=== PATIENT | male | born 1950 | race Caucasian/White ===

== ENCOUNTER → 2017-03-03 | Outpatient (CLI) | payer MEDICARE, OTHER ==
--- NOTE | 2017-03-03 16:06 | MR ---
EXAMINATION TYPE: MR lumbar spine wo con DATE OF EXAM: 03/03/2017 COMPARISON: NONE HISTORY: Low back pain x10 years TECHNIQUE: Multiplanar, multisequence images of the lumbar spine were acquired. FINDINGS: Vertebral body alignment and vertebral body heights are maintained. Small Schmorl's node of the superior endplate of the L3 vertebral body is seen with the anterior superior endplate vertebral body height maintained. Other smaller Schmorl's nodes are seen throughout. Small probable bone islan d is seen at L3, T1 hypointense and T2 hypointense. Type II Modic degenerative endplate changes are n oted throughout. Multilevel disc desiccation is seen. The conus medullaris is unremarkable terminatin g at L1. L1-L2: There is a broad-based disc bulge present without focality that is left eccentric creating mil d neural foraminal narrowing without spinal canal stenosis. L2-L3: There is a broad-based disc bulge, facet arthropathy, and ligamentum flavum buckling creating mild bilateral neural foraminal narrowing and transversely narrowing the spinal canal mildly. L3-L4: There is significant ligamentum flavum buckling, a broad-based disc bulge, and facet arthropat hy mildly narrowing the neural foramen but creating moderate spinal canal stenosis. L4-L5: Broad-based disc bulge, facet arthropathy and ligamentum flavum buckling are seen. Additionall y superimposed upon this there is a right foraminal disc herniation extending into the neural foramen abutting the L4 nerve root creating moderate right neural foraminal narrowing. There is mild to mode rate spinal canal stenosis and mild to moderate left neural foraminal narrowing present. L5-S1: There is a broad-based disc bulge creating mild neural foraminal narrowing in combination with moderate facet arthropathy. No spinal canal stenosis. IMPRESSION: 1. Right foraminal disc herniation superimposed upon a broad-based disc bulge at L4-L5 create a disc herniation abuts the exiting L4 nerve root and creates moderate right neural foraminal narrowing. 2. Multilevel degenerative disc disease, moderate in degree. This creates mild to moderate spinal can al stenosis at L4-L5, moderate spinal canal stenosis at L3-L4, and mild spinal canal stenosis at L2-L 3. Multilevel neural foraminal narrowing as described above.
== END | disposition home or self-care (01) ==
LOC: RADMRIMAIN 14:59
PROVIDERS: ATTEND Internal Medicine
DX: M48.061 Spinal stenosis, lumbar region without neurogenic claudication (principal); M99.73 Connective tissue and disc stenosis of intervertebral foramina of lumbar region; M51.26 Other intervertebral disc displacement, lumbar region; M51.36 Other intervertebral disc degeneration, lumbar region
CPT/HCPCS: 72148

== ENCOUNTER → 2017-05-13 | Outpatient (CLI) | payer MEDICARE, OTHER ==
--- NOTE | 2017-05-13 13:40 | P.HPIM ---
History of Present Illness H&P Date: 05/13/17 Chief Complaint: low back and lower extremity pain This is a 66-year-old patient referred by [facility] for chronic pain in low back with radiation to both legs, L >> R with numbness in left foot but not in his leg. Patient is considering left hip replacement and is referred by Dr. Leung for LESIs to ensure that his pain is not coming from his lumbar spine. Patient has been taking only OTC medications for pain with some relief. Patient denies adverse drug effects from medications. Patient also denies new -onset weakness, bowel/bladder incontinence, or any other signs or symptoms of cauda equina syndrome. There are no signs of acute intoxication, and no indications of medication diversion or overuse. Patient notes that pain worsens significantly with standing and walking, and improves with sitting, rest, and medication. Patient has used several types of medications for pain, including NSAIDS, OPIOIDS, TRAMADOL. Patient HAS NOT had surgery. Patient HAS NOT had injections previously. Patient HAS had physical therapy recently without relief. In addition to above, 13-point review of systems is also negative for chest pain , shortness of breath, changes in vision, changes in hearing, new onset weakness , abdominal pain, diarrhea, extreme fatigue, malaise, fever, skin changes, homicidal or suicidal ideation, or bowel or bladder incontinence. Vital Signs: Reviewed in EMR Gen: WDWN, AAOx3, NAD HEENT: NCAT, EOMI, hearing grossly normal Pulm: resp unlabored Abd: soft, NT, ND Neck: supple, trachea midline ROM in flexion lumbar spine: reduced ROM in extension lumbar spine: reduced Lumbar paravertebral tenderness: + Facet loading: neg SI joint tenderness: neg Clayton's test: neg Straight leg raise: +LLE at 25 degrees Medications and Allergies Home Medications Medication Instructions Recorded Confirmed Type Allopurinol [Zyloprim] 100 mg PO DAILY 05/13/17 05/13/17 History Indomethacin [Indocin] 25 mg PO PRN 05/13/17 History [place]-3 Fatty Acids/Fish Oil [Fish 1,000 mg PO DAILY 05/13/17 05/13/17 History Oil 1,000 mg Softgel] Allergies Allergy/AdvReac Type Severity Reaction Status Date / Time No Known Allergies Allergy Verified 05/13/17 13:24 Results Comments: MRI lumbar spine without contrast demonstrates broad-based disc bulges at the L1 -L2, L2-L3, L3-L4, L4-L5, and L5-S1 levels. This is worse the L4-L5 level where there is also associated facet arthropathy and ligamentum flavum buckling seen. There is a right foraminal disc herniation extending into the neural foramen and abutting the L4 nerve root creating moderate right neural foraminal narrowing. There is also mild to moderate spinal canal stenosis at this level. At the L3-L4 level there is significant ligamentum flavum buckling and facet arthropathy mildly narrowing the neural foramina and also creating moderate spinal canal stenosis. Assessment and Plan (1) Lumbar radiculopathy Current Visit: Yes Status: Chronic Code(s): M54.16 - RADICULOPATHY, LUMBAR REGION SNOMED Code(s): 381713414 (2) Lumbar facet arthropathy Current Visit: Yes Status: Chronic Code(s): M46.96 - UNSPECIFIED INFLAMMATORY SPONDYLOPATHY, LUMBAR REGION SNOMED Code(s): 911728580 (3) Lumbar disc herniation Current Visit: Yes Status: Chronic Code(s): M51.26 - OTHER INTERVERTEBRAL DISC DISPLACEMENT, LUMBAR REGION SNOMED Code(s): 113191295 Plan: Plan: 1. Explanation: Opioid and psychological risk scores were reviewed. Diagnoses , prognoses, and multiple treatment options including but not limited to physical therapy, interventional therapies, adjuvant medical therapies, narcotic medication therapies, and surgery were discussed with the patient and all questions were answered to the patient's satisfaction. 2. Opioid agreement: no opioids prescribed today 3. Counseling: The patient was counseled extensively on SMOKING CESSATION, BODY MASS INDEX, EXERCISE. Specifically, the patient was instructed regarding the importance of smoking cessation, weight control, and exercise in the context of both chronic pain and overall health. 4. Procedures: LESI series L4-L5 if possible 5. Consultations: none 6. Investigations: none 7. Medications: none prescribed 8. Disposition: f/u for procedure as scheduled PQRS measures: 1-Patient's medications are documented in the chart. 2-Tobacco use is negative, counseling given 3-Patient has not had a pneumococcal vaccine. 4-Advanced care planning discussed, patient unable to give. 5-Opioid contract NOT signed with the patient. 6-Pain positive, follow-up visit or procedure scheduled 7-Patient's blood pressure measured and documented, and patient will follow up with the primary care due to hypertension. 8-Patient's weight was measured, and body mass index ABOVE the normal limits, and counseling was done. Patient instructed to follow up with PCP. 9-Patient WAS NOT identified as an unhealthy alcohol user.
[2017-05-13 13:42] VITALS: BP 160/67; PULSE 91; RESP 18
== END | disposition home or self-care (01) ==
LOC: PNWHC3 12:55
PROVIDERS: ATTEND Anesthesiology
DX: M51.16 Intervertebral disc disorders with radiculopathy, lumbar region (principal); M46.96 Unspecified inflammatory spondylopathy, lumbar region; Z79.899 Other long term (current) drug therapy
CPT/HCPCS: 99201

== ENCOUNTER 2017-05-15 05:58 | Day surgery (SDC) | payer MEDICARE, OTHER ==
[2017-05-14 09:01] VITALS: BMI 28.8
[2017-05-15 06:33] VITALS: RESP 16; TEMP 97.6
[2017-05-15] MEDS ORDERED: LACTATED RINGERS 1,000 ML IV ONE (06:35)
[2017-05-15] MEDS ORDERED: LIDOCAINE 1% 20 ML VIAL (10MG/ML) FOR IV START INTRADERMA ONE (06:35)
[2017-05-15] MEDS ORDERED: LACTATED RINGERS 1,000 ML IV SCH (07:00)
--- NOTE | 2017-05-15 07:18 | P.PCN ---
Date of Procedure: 05/15/17 Surgeon: Jorge Ferrell Pathology: none sent Condition: stable Disposition: PACU Description of Procedure: PREOPERATIVE DIAGNOSIS: 1-Lumbar disc herniation POSTOPERATIVE DIAGNOSIS: same PROCEDURE 1. Lumbar epidural steroid injection under fluoroscopic guidance at the L4-L5 level. 2. Lumbar epidurogram. ANESTHESIA: Local with 1% lidocaine; IV sedation with Versed/fentanyl. EBL: Minimal PROCEDURE INDICATION: The patient with low back pain and radiculitis (L >> R) symptoms unresponsive to conservative treatment. Fluoroscopy was used to optimize visualization of the needle placement and to maximize safety. No use of blood thinners. LESI #1 today. PROCEDURE DESCRIPTION / TECHNIQUE: The patient was seen and identified in the preoperative area. Risks, benefits, complications, and alternatives were discussed with the patient, including but not limited to bleeding, infection, nerve damage, allergic reactions to medications, and incomplete pain relief. The patient agreed to proceed with the procedure and signed the consent after all questions were answered. IV was started, and vital signs were stable. Patient was taken to the OR and time out was completed to confirm patient position, procedure, laterality of pain, and allergies. The patient was placed in the prone position on procedure table and a pillow was placed under the abdomen to reduce lumbar lordosis. The lumbosacral area was prepped and draped in the usual sterile fashion. Critical pause was taken. Vital signs were closely monitored during the procedure. Conscious sedation was used during the procedure to decrease patients anxiety. Using anterior-posterior fluoroscopy, the L4-L5 interlaminar space was identified and the skin over this site was marked and then infiltrated with 1% lidocaine subcutaneously in a left paramedian fashion. Subsequently, a 20-gauge 3.5-inch Tuohy epidural needle was inserted and advanced toward the epidural space using the Loss of resistance technique and guided by AP and lateral fluoroscopy. The correct needle position in the epidural space was verified with the injection of 2 mL of the water soluble contrast dye Omnipaque 300 contrast and observing an excellent epidurogram with the epidural spread of the dye, after negative aspiration for blood and CSF and in the absence of paresthesias. Again after negative aspiration, a 6 ml mixture containing 80 mg DepoMedrol and 2 ml of preservative free Normal Saline, and 2 ml of preservative free lidocaine 1% solution was injected and a washout of epidurogram was seen. Needle was withdrawn intact, skin was cleansed, and bandages were applied. COMPLICATIONS: None COMMENTS: DISPOSITION / PLANS: The patient was placed in a supine position and transferred to the recovery area in a stable condition for observation. There was no evidence of lower extremity motor or sensory deficit after the procedure. Patient was discharged from the recovery room after meeting discharge criteria. Home discharge instructions were given to the patient by the staff. The patient was reexamined prior to discharge and there were no issues. The patient will schedule a repeat LESI (#2) in 3-4 weeks.
[2017-05-15] MEDS ORDERED: IV FLUID CONTINUATION 1,000 ML IV ONE (07:23)
[2017-05-15 07:38] VITALS: BP 144/92; PULSE 64
--- NOTE | 2017-05-15 08:55 | FL ---
EXAMINATION TYPE: FL guided pain mgmt statistic DATE OF EXAM: 05/15/2017 CLINICAL HISTORY: Low back pain TECHNIQUE: Fluoroscopy. COMPARISON: None. FINDINGS: Fluoroscopic guidance was provided during procedure performed by Dr. Ferrell. A total of 7 seconds of fluoroscopic time was utilized during the procedure and one spot intraoperative image is a cquired. Single image acquired shows localization of needle at superior L5 epidural level from a post erior approach. IMPRESSION: As Above.
== END 2017-05-15 07:53 | disposition home or self-care (01) ==
LOC: ORPAIN 05:58
PROVIDERS: ATTEND Anesthesiology
DX: G89.29 Other chronic pain (principal); M51.16 Intervertebral disc disorders with radiculopathy, lumbar region; Z79.899 Other long term (current) drug therapy
CPT/HCPCS: 62323; J2250; J1030; J3010; Q9966

== ENCOUNTER → 2017-06-06 | Outpatient (CLI) | payer MEDICARE, OTHER ==
[2017-06-06 14:46] LABS: Partial Thromboplastin Time 24.2 sec (22.0-30.0); Prothrombin Time 9.9 sec (9.0-12.0)
[2017-06-06 14:50] LABS: HGB 14.3 gm/dL (13.0-17.5); MCH 28.1 pg (25.0-35.0); MCV 82.8 fL (80.0-100.0); Platelet Count 223 k/uL (150-450); RBC 5.07 m/uL (4.30-5.90); RDW 13.1 % (11.5-15.5)
[2017-06-06 14:52] LABS: ALT 36 U/L (21-72); AST 26 U/L (17-59); Albumin 4.7 g/dL (3.5-5.0); Alkaline Phosphatase 77 U/L (38-126); Anion Gap 19 mmol/L; Blood Urea Nitrogen 19 mg/dL (9-20); Carbon Dioxide 25 mmol/L (22-30); Chloride 105 mmol/L (98-107); Glucose 112 mg/dL (74-99); Potassium 4.7 mmol/L (3.5-5.1); Sodium 149 mmol/L (137-145); Total Bilirubin 1.1 mg/dL (0.2-1.3); Total Protein 8.2 g/dL (6.3-8.2)
[2017-06-06 14:53] LABS: Appearance,Urine Clear (Clear); Bilirubin,Urine Negative (Negative); Blood,Urine Trace (Negative); Color,Urine Yellow; Glucose,Urine (UA) Negative (Negative); Hyaline Casts,Urine 1 /lpf (0-2); Ketones,Urine Negative (Negative); Leukocyte Esterase,Urine Small (Negative); Mucus,Urine Rare /hpf; Nitrite,Urine Negative (Negative); Protein,Urine Negative (Negative); RBC,Urine 1 /hpf (0-5); Specific Gravity,Urine 1.019 (1.001-1.035); Squamous Epithelial Cell,Urine 1 /hpf (0-4); Urobilinogen,Urine <2.0 mg/dL (<2.0); WBC,Urine 5 /hpf (0-5)
== END | disposition home or self-care (01) ==
LOC: LABPAT 14:12 → EDSTATUS 16:28
PROVIDERS: ATTEND Orthopaedic Surgery
DX: Z01.812 Encounter for preprocedural laboratory examination (principal); Z01.818 Encounter for other preprocedural examination; Z79.01 Long term (current) use of anticoagulants
CPT/HCPCS: 36415; 80053; 81001; 85027; 85610; 85730; 87070; 93005

== ENCOUNTER 2017-06-12 05:54 | Day surgery (SDC) | payer MEDICARE, OTHER ==
[2017-06-10 10:15] VITALS: BMI 29.7
[2017-06-12 06:54] VITALS: RESP 16; TEMP 97.9
[2017-06-12] MEDS ORDERED: LACTATED RINGERS 1,000 ML IV ONE ×2 (06:55)
--- NOTE | 2017-06-12 07:28 | P.PCN ---
Date of Procedure: 06/12/17 Surgeon: Michael Osborne Description of Procedure: PREOPERATIVE DIAGNOSIS: 1-Lumbar disc herniation 2-Lumbar radiculopathy POSTOPERATIVE DIAGNOSIS: same PROCEDURE 1. Lumbar epidural steroid injection under fluoroscopic guidance at the L4-L5 level. 2. Lumbar epidurogram. ANESTHESIA: Local with 1% lidocaine; IV sedation with Versed/fentanyl. EBL: Minimal PROCEDURE INDICATION: The patient with low back pain and radiculitis (L >> R) symptoms unresponsive to conservative treatment. Fluoroscopy was used to optimize visualization of the needle placement and to maximize safety. No use of blood thinners. LESI #1 today. PROCEDURE DESCRIPTION / TECHNIQUE: The patient was seen and identified in the preoperative area. Risks, benefits, complications, and alternatives were discussed with the patient, including but not limited to bleeding, infection, nerve damage, allergic reactions to medications, and incomplete pain relief. The patient agreed to proceed with the procedure and signed the consent after all questions were answered. IV was started, and vital signs were stable. Patient was taken to the OR and time out was completed to confirm patient position, procedure, laterality of pain, and allergies. The patient was placed in the prone position on procedure table and a pillow was placed under the abdomen to reduce lumbar lordosis. The lumbosacral area was prepped and draped in the usual sterile fashion. Critical pause was taken. Vital signs were closely monitored during the procedure. Conscious sedation was used during the procedure to decrease patients anxiety. Using anterior-posterior fluoroscopy, the L4-L5 interlaminar space was identified and the skin over this site was marked and then infiltrated with 1% lidocaine subcutaneously in a left paramedian fashion. Subsequently, a 20-gauge 3.5-inch Tuohy epidural needle was inserted and advanced toward the epidural space using the Loss of resistance technique and guided by AP and lateral fluoroscopy. The correct needle position in the epidural space was verified with the injection of 2 mL of the water soluble contrast dye Omnipaque 300 contrast and observing an excellent epidurogram with the epidural spread of the dye, after negative aspiration for blood and CSF and in the absence of paresthesias. Again after negative aspiration, a 6 ml mixture containing 40 mg DepoMedrol and 2 ml of preservative free Normal Saline, and 2 ml of preservative free lidocaine 1% solution was injected and a washout of epidurogram was seen. Needle was withdrawn intact, skin was cleansed, and bandages were applied. COMPLICATIONS: None COMMENTS: DISPOSITION / PLANS: The patient was placed in a supine position and transferred to the recovery area in a stable condition for observation. There was no evidence of lower extremity motor or sensory deficit after the procedure. Patient was discharged from the recovery room after meeting discharge criteria. Home discharge instructions were given to the patient by the staff. The patient was reexamined prior to discharge and there were no issues. The patient is going to have left hip replacement in a few weeks.
[2017-06-12] MEDS ORDERED: LACTATED RINGERS 1,000 ML IV SCH (07:30)
[2017-06-12] MEDS ORDERED: IV FLUID CONTINUATION 1,000 ML IV ONE (07:32)
[2017-06-12 07:50] VITALS: BP 123/79; PULSE 76
--- NOTE | 2017-06-12 07:51 | FL ---
EXAMINATION TYPE: FL guided pain mgmt statistic DATE OF EXAM: 06/12/2017 COMPARISON: NONE HISTORY: Neck pain TECHNIQUE: Fluoroscopy. FINDINGS/IMPRESSION: Fluoroscopic guidance was provided during procedure performed by Dr. Osborne. A total of 7 seconds of fluoroscopic time was utilized during the procedure and 2 spot images was acq uired during a lumbar epidural.
== END 2017-06-12 08:03 | disposition home or self-care (01) ==
LOC: ORPAIN 05:54
PROVIDERS: ATTEND Anesthesiology
DX: M51.16 Intervertebral disc disorders with radiculopathy, lumbar region (principal)
CPT/HCPCS: 62323; J2250; J1030; J3010; Q9966; 99152

== ENCOUNTER → 2017-06-17 | Outpatient (CLI) | payer MEDICARE, OTHER | END | disposition home or self-care (01) | LOC: LABPAT 11:06 | PROVIDERS: ATTEND Orthopaedic Surgery | DX: Z01.812 Encounter for preprocedural laboratory examination (principal) | CPT/HCPCS: 36415; 86850; 86900; 86901 ==

== ENCOUNTER 2017-06-24 06:50 | Inpatient (IN) | payer MEDICARE, OTHER ==
[2017-06-18 10:07] VITALS: BMI 29.7
[~2017-06-24 06:50] MED LIST: ACETAMINOPHEN TAB 500 MG TAB PO ONE; MIDAZOLAM 2 MG/2 ML VIAL IV PRN; ONDANSETRON ODT 4 MG TAB PO ONE; ROPIVACAINE 246.25 MG, EPINEPHrine 0.5 MG, KETOROLAC 30 MG, cloNIDine HCL/PF 80 MCG, WA... MISCELLANE ONE; TRANEXAMIC ACID 1,000 MG in SODIUM CHLORIDE 0.9% 50 ML IVPB ONE; ceFAZolin IN SWFI 2 GM/20 ML SYRINGE IVP ONE; fentaNYL (PF) 50 MCG/ML 2 ML AMP IV PRN
[2017-06-24] MEDS: MELOXICAM 7.5 MG TAB PO ONE ×2 (07:49→13:49)
[2017-06-24] MEDS: LACTATED RINGERS 1,000 ML IV SCH ×2 (08:17→09:26)
[2017-06-24] MEDS: DEXAMETHASONE SOD PHOSPHATE 10 MG/ML 1 ML VIAL IV ONE ×2 (08:17→13:50)
[2017-06-24] MEDS ORDERED: ONDANSETRON 4 MG/2 ML VIAL IVP ONE (08:18)
[2017-06-24] MEDS ORDERED: MORPHINE SULFATE 4 MG/ML SYRINGE IVP PRN ×3 (09:01)
[2017-06-24] MEDS ORDERED: MAGNESIUM HYDROXIDE 2,400 MG/10 ML CUP PO PRN (09:01)
[2017-06-24] MEDS ORDERED: ONDANSETRON 4 MG/2 ML VIAL IVP PRN (09:01)
[2017-06-24] MEDS ORDERED: DIAZEPAM 5 MG TAB PO PRN ×2 (09:01)
[2017-06-24] MEDS ORDERED: NALOXONE 0.4 MG/ML 1 ML VIAL IV PRN (09:01)
[2017-06-24] MEDS ORDERED: HYDROcodone/APAP 5-325MG 1 EACH TAB PO PRN (09:01)
[2017-06-24] MEDS ORDERED: TRANEXAMIC ACID 1,000 MG/10 ML VIAL ONE (09:27)
[2017-06-24] MEDS ORDERED: fentaNYL (PF) 50 MCG/ML 2 ML AMP ONE (09:27)
[2017-06-24] MEDS ORDERED: HEPARIN SODIUM,PORCINE 10,000 UNIT/ML 1 ML VIAL ONE (09:27)
[2017-06-24] MEDS ORDERED: PHENYLEPHRINE-0.9% NACL SYG 1 MG/10 ML SYRINGE ONE (09:27)
[2017-06-24] MEDS ORDERED: SODIUM CHLORIDE 0.9% IRRIG 1,000 ML BTL IRRIGATION ONE (09:27)
[2017-06-24] MEDS ORDERED: MIDAZOLAM 2 MG/2 ML VIAL ONE (09:27)
[2017-06-24] MEDS ORDERED: SODIUM CHLORIDE 0.9% 100 ML BAG ONE (09:27)
[2017-06-24] MEDS ORDERED: PROPOFOL 10 MG/ML 20 ML VIAL IV ONE (09:27)
[2017-06-24] MEDS ORDERED: ceFAZolin 3,000 MG in SODIUM CHLORIDE 0.9% IRRIGATIO 3,000 ML IRRIGATION ONE (09:54)
[2017-06-24] MEDS ORDERED: LACTATED RINGERS 1,000 ML IV ONE (10:46)
--- NOTE | 2017-06-24 10:48 | P.OP ---
Date of Procedure: 06/24/17 Preoperative Diagnosis: Severe osteoarthritis left hip Postoperative Diagnosis: Severe osteoarthritis left hip Procedure(s) Performed: Left total hip arthroplasty with a direct anterior approach Implants: Diaz and nephew Polarstem size 4 standard Diaz [employer] Nephew R3, 3 hole acetabular shell, 54 mm Diaz [employer] Nephew reflection 6.5 mm cancellus screw, 20 mm 2 Diaz [employer] Nephew R3, XLPE 20 acetabular liner Diaz & Nephew Oxinium femoral head 36 m, +0 All components were press-fit. The articulation is Oxinium on polyethylene. Anesthesia: spinal Surgeon: Gustavo Mcmillan Monitor Worker #1: Denice Mata Estimated Blood Loss (ml): 150 (61 mL returned with Cell Saver) Pathology: other (Femoral head) Condition: stable Disposition: PACU Indications for Procedure: After failure of conservative treatment we discussed the surgical and nonsurgical treatment options at length. Patient wishes to proceed with a total hip arthroplasty with a direct anterior approach. Complications specific to this procedure were discussed at length, including but not limited to infection, leg length discrepancy, dislocation, and nerve injury. Patient is aware of all these complications and informed consent was obtained Operative Findings: The operative findings are consistent with severe osteoarthritis of the left hip Description of Procedure: Patient was seen and evaluated in the preoperative area, consent was reviewed, and the surgical site was marked with a skin marker. Patient was then brought to the operating room and given prophylactic antibiotics intravenously. 1 g of Tranexamic acid was also given. A spinal anesthetic was administered by the anesthesia department. The patient was then placed on the [place] table with the bony prominences well-padded. The hip area was then prepped and draped in usual sterile fashion. A universal timeout was then performed, which confirmed the patient's name, surgical site, ALLERGIES, and procedure being performed. Next the incision site was located at 1 cm distal and 1 cm lateral to the anterior superior iliac spine. The skin and subcutaneous tissues were sharply incised. Incision was carefully dissected down to the fascia overlying the tensor fascia demetris muscle. This fascia was then incised in line with the incision. Next, using blunt finger dissection, the tensor fascia demetris muscle was dissected off its investing fascia. The muscle was then carefully retracted laterally with a cobra retractor over the lateral neck of the femur. Next, the circumflex vessels were identified and cauterized using the AquaMantis device. The anterior hip capsule was then exposed. The capsule was then opened and an inverted T fashion. Cobra retractors were then placed intracapsularly. The proximal femur was then visualized. The femoral neck was then osteotomized appropriate level above the lesser trochanter. Small amount of traction was placed with the [place] table. A small wedge of bone was then removed from the remaining femoral head. Next, using a corkscrew femoral head was easily removed from the acetabulum. On gross visual inspection, the femoral head had complete loss of articular cartilage in multiple periarticular osteophytes. Attention was then turned to the acetabulum. the acetabulum was exposed and any remaining labrum was excised. Sequential reaming of the acetabulum was performed using fluoroscopic guidance. When the appropriate size was reached, a trial was then placed. The position and fit of the trial was checked with fluoroscopy. The trial was then removed. Then, using fluoroscopic guidance, the final implant was impacted at 20 of anteversion and 40 of abduction, and fully seated in the acetabulum. 2 screws were then placed in the acetabulum. Again fluoroscopy was used to check position of the screws. Next, the liner was then impacted, with a 20 elevated liner located in the anterior superior quadrant. Component locking was confirmed. Attention was then directed to the femur. With the aid of the [place] table, the femur was externally rotated to approximately 130, extended, and abducted under the opposite leg. A side hook was then placed under the proximal femur, and the side hook elevator was used to elevate the proximal femur. Retractors were then placed. A capsular release was performed, as well as a release of the conjoined tendon, which afforded excellent visualization of the proximal femur. Next, a box osteotome was used to lateralize the proximal femur. A web merchandiser was then used to locate the femoral canal. Sequential broaching was then performed with appropriate size which afforded excellent fixation in the proximal femur. A trial was then placed with appropriate head and neck, and the hip was gently reduced with the aid of the [place] table. Fluoroscopy was then used to check position of the components, as well as to ensure equal leg lengths. The hip was then gently dislocated and the trials were then removed. Final implants were then impacted and the hip was again reduced. Final fluoroscopic x-rays confirmed that the components were in anatomic position, as well as equal leg lengths. The hip was also taken through range of motion, and found to be stable. The hip was then copiously irrigated with antibiotic solution with pulsatile lavage. The hip was then irrigated with Irrisept solution. The soft tissues were then injected with a ropivacaine solution, which consisted of 246.25 mg of ropivacaine, 0.5 mg of epinephrine, 30 mg of Toradol, 80 g of clonidine, and 48.45 mL of sterile water, for a total of 100 mL of fluid injected. A second dose of 1 g of Tranexamic acid was also given. the fascia was then closed with 2-0 strata fix suture. The subcutaneous tissue was closed with 3-0 Vicryl. The subcuticular tissue was closed with 3-0 strata fix suture. The skin was then closed with Dermabond glue and a sterile silver dressing. The patient was then transferred to the recovery room in stable condition. The merchandising assistant LUCIA Mcdaniel was required due to the complexity of surgery, and the need for skilled surgical consultant for positioning, draping, exposure, retraction, and closure of the wound.
--- NOTE | 2017-06-24 11:32 | FL ---
EXAMINATION TYPE: FL guidance operating room, XR Hip Limited LT DATE OF EXAM: 06/24/2017 COMPARISON: NONE HISTORY: 66-year-old male left hip arthroplasty FINDINGS: 2 intraoperative fluoroscopic images showing left hip total arthroplasty. FLUOROSCOPY Fluoroscopy time of 46 seconds was used during left hip total arthroplasty. 2 image/s document/s the procedure. IMPRESSION: Intraoperative fluoroscopy during left hip total arthroplasty as above.
[2017-06-24] MEDS: SODIUM CHLORIDE 0.9% 1,000 ML IV SCH (15:55)
[2017-06-24] MEDS: ceFAZolin IN SWFI 2 GM/20 ML SYRINGE IVP SCH (15:55)
--- NOTE | 2017-06-24 20:00 | CONS ---
CONSULTATION REASON FOR CONSULTATION: Advice regarding DJD and gout and other medical issues, requested by Dr. Mcmillan. HISTORY OF PRESENT ILLNESS: This 66-year-old gentleman with a past medical history of DJD, gout, history of back pain, appendectomy, being followed by Dr. Caicedo in the outpatient setting, underwent left total hip joint arthroplasty with a direct anterior approach by Dr. Mcmillan for severe DJD. There is no history of any fever, rigor or chills. No history of headache, loss of consciousness, chest pain, palpitations. PAST MEDICAL HISTORY: 1. DJD. 2. Gout. 3. History of back pain. MEDICATIONS PRIOR TO ADMISSION: 1. [place]-3 fatty acids. 2. Indocin 25 mg daily p.r.n. 3. Cipro 250 mg b.i.d. 4. Zyloprim 100 mg p.o. daily. 5. Senokot 1 tablet p.o. b.i.d. 6. [place] 5 mg q.6 p.r.n. 7. Aspirin 325 mg p.o. daily. ALLERGIES: NONE. FAMILY HISTORY: No history of heart disease or strokes in the family. SOCIAL HISTORY: No history of smoking. Occasional alcohol intake. REVIEW OF SYSTEMS: ENT: No diminished hearing. No diminished vision. CARDIOVASCULAR SYSTEM: No angina, palpitations. RESPIRATORY SYSTEM: No cough, hemoptysis. GI: No nausea, vomiting. : No dysuria or retention. NERVOUS SYSTEM: No numbness, weakness. ALLERGY/IMMUNOLOGY: No asthma, hayfever. MUSCULOSKELETAL: As mentioned earlier. HEMATOLOGY/ONCOLOGY: No history of anemia. ENDOCRINE: No history of diabetes, hypothyroidism. CONSTITUTIONAL: As mentioned earlier. DERMATOLOGY: Negative. RHEUMATOLOGY: Negative. PSYCHIATRY: As mentioned earlier. PHYSICAL EXAMINATION: Patient alert and oriented x3. Pulse 85, blood pressure 132/84, respiration 20, temperature normal, pulse ox 95% on room air. HEENT: Conjunctivae normal. Oral mucosa moist. NECK: No jugular venous distention. No carotid bruit. No lymph node enlargement. CARDIOVASCULAR SYSTEM: S1, S2 muffled. No S3. No S4. RESPIRATORY SYSTEM: Breath sounds diminished at the bases. No rhonchi. No crackles. ABDOMEN: Soft, non-tender. No mass palpable. LEGS: Status post surgery. NERVOUS SYSTEM: Higher functions as mentioned earlier. Moves all 4 limbs. No focal motor or sensory deficit. LYMPHATICS: No lymph node palpable in neck, axillae or groin. SKIN: No ulcer, rash, bleeding. LABS: Labs are at this time not available. Previous labs done as an outpatient showed normal CBC and electrolytes except sodium 149. UA was also unremarkable. ASSESSMENT: 1. Status post left total hip joint arthroplasty. 2. Bradycardia, possibly sinus. 3. History of degenerative joint disease. 4. History of gout. 5. History of back pain. RECOMMENDATIONS AND DISCUSSION: I recommend to continue current medication, continue symptomatic treatment. Otherwise, incentive spirometry, DVT prophylaxis. I would recommend resuming the home medications. We will follow the patient closely with you. Thank you, Dr. Mcmillan, for letting us participate in the care of this patient. MMDANIELAL / IJN: [id number] /
[2017-06-24] MEDS: ASPIRIN 325 MG TAB PO SCH (20:54)
[2017-06-24] MEDS: SENNOSIDES-DOCUSATE SODIUM 1 EACH TAB PO SCH (20:54)
[2017-06-25] MEDS: ceFAZolin IN SWFI 2 GM/20 ML SYRINGE IVP SCH (01:10)
[2017-06-25 07:25] LABS: Basophils % (A) 0 %; Eosinophils # (A) 0.1 k/uL (0-0.7); Eosinophils % (A) 1 %; HCT 35.3 % (39.0-53.0); Lymphocytes # (A) 2.6 k/uL (1.0-4.8); Lymphocytes % (A) 23 %; MCH 28.1 pg (25.0-35.0); MCV 82.6 fL (80.0-100.0); Mean Platelet Volume 7.7; Monocytes # (A) 0.8 k/uL (0-1.0); Monocytes % (A) 7 %; Neutrophils # (A) 7.6 k/uL (1.3-7.7); Neutrophils % (A) 67 %; Platelet Count 233 k/uL (150-450); RBC 4.27 m/uL (4.30-5.90); RDW 12.8 % (11.5-15.5); WBC 11.4 k/uL (3.8-10.6)
[2017-06-25] MEDS: ASPIRIN 325 MG TAB PO SCH ×2 (07:36→22:26)
[2017-06-25] MEDS: HYDROcodone/APAP 5-325MG 1 EACH TAB PO PRN ×2 (07:36→17:30)
[2017-06-25] MEDS: MELOXICAM 7.5 MG TAB PO SCH (07:36)
--- NOTE | 2017-06-25 09:55 | P.PN ---
Subjective Progress Note Date: 06/25/17 Principal diagnosis: Primary osteoarthritis left hip. Status post total left hip arthroplasty, anterior approach. This is a 66-year-old male who is status post total left hip arthroplasty with anterior approach. He is doing well from an orthopedic standpoint. He has no new complaints or concerns today. He is planning discharge to inpatient rehab. Objective - Vital Signs Vital signs: Vital Signs Temp 98.9 F 06/25/17 07:36 Pulse 83 06/25/17 07:36 Resp 16 06/25/17 07:36 BP 137/82 06/25/17 07:36 Pulse Ox 94 L 06/25/17 07:36 Intake & Output 06/24/17 06/25/17 06/25/17 18:59 06:59 18:59 Intake Total 1866 2120 Output Total 200 Balance 1666 2120 Weight 86.183 kg Intake: IV 1801 Intake, IV Titration 65 1040 Amount Sodium Chloride 0.9% 1, 65 1040 000 ml @ 65 mls/hr IV . [id number] [facility] Rx#:[id number] Oral 1080 Output: Estimated Blood Loss 200 Other: Voiding Method Toilet Urinal # Voids 3 - Exam This is a pleasant 66-year-old male in no acute distress. He is alert and oriented 3. Exam of the left hip reveals that his dressing is clean, dry and intact. He has no erythema or ecchymosis. He has full foot and ankle motion without difficulty or pain. Neurovascular status to the lower extremity is intact. - Labs CBC & Chem 7: 06/25/17 07:13 Labs: Abnormal Lab Results - Last 24 Hours (Table) 06/25/17 Range/Units 07:13 WBC 11.4 H (3.8-10.6) k/uL RBC 4.27 L (4.30-5.90) m/uL Hgb 12.0 L (13.0-17.5) gm/dL Hct 35.3 L (39.0-53.0) % Assessment and Plan (1) Primary osteoarthritis of left hip Current Visit: Yes Status: Acute Code(s): M16.12 - UNILATERAL PRIMARY OSTEOARTHRITIS, LEFT HIP SNOMED Code(s): 827140219 (2) Status post total replacement of left hip Current Visit: Yes Status: Acute Code(s): Z96.642 - PRESENCE OF LEFT ARTIFICIAL HIP JOINT SNOMED Code(s): 693522963502 Plan: The clinical findings are discussed the patient. He may be discharged to rehab when bed available and cleared medically. Most likely discharge will be Friday.
[2017-06-25] MEDS ORDERED: HYDROmorphone 2 MG TAB PO PRN ×3 (11:26→11:27)
[2017-06-25] MEDS: LACTATED RINGERS 1,000 ML IV SCH (14:57)
[2017-06-25] MEDS: SODIUM CHLORIDE 0.9% 1,000 ML IV SCH (14:57)
--- NOTE | 2017-06-25 14:58 | PN ---
PROGRESS NOTE DATE OF SERVICE: 06/25/2017 This 66-year-old gentleman was admitted with left total hip joint arthroplasty, is improving significantly. No chest pain. No palpitations. No fever. PHYSICAL EXAM: Alert and oriented x3. Pulse 83, blood pressure 130/82, respirations 16, temperature 98.2, pulse ox 94% on room air. HEENT: Conjunctivae normal. NECK: No jugular venous distension. CARDIOVASCULAR: S1, S2, muffled. RESPIRATORY: Breath sounds diminished at the bases, no rhonchi, no crackles. Abdomen is soft, nontender. LEGS: Status post left hip joint arthroplasty. NERVOUS SYSTEM: No focal deficits. LABS: WBC is 11.2, hemoglobin is 12. ASSESSMENT: 1. Status post left total hip joint arthroplasty. 2. Bradycardia, possibly sinus improved. 3. History of degenerative joint disease. 4. History of gout. 5. History of back pain. RECOMMENDATION: Continue with the current management and symptomatic treatment; otherwise, DVT prophylaxis, incentive spirometry. Increase ambulation. Further recommendations to follow. MMODL / IJN: [id number] /
[2017-06-25] MEDS: SENNOSIDES-DOCUSATE SODIUM 1 EACH TAB PO SCH (22:25)
[2017-06-26] MEDS: HYDROcodone/APAP 5-325MG 1 EACH TAB PO PRN ×4 (01:27→21:02)
--- NOTE | 2017-06-26 08:39 | P.PN ---
Subjective Progress Note Date: 06/26/17 Principal diagnosis: Primary osteoarthritis left hip. Status post total left hip arthroplasty, anterior approach. This is a 66-year-old male who is status post total left hip arthroplasty with anterior approach. He is doing well from an orthopedic standpoint. He has no new complaints or concerns today. He is planning discharge to inpatient rehab. Objective - Vital Signs Vital signs: Vital Signs Temp 99.2 F 06/26/17 03:02 Pulse 89 06/26/17 03:05 Resp 16 06/26/17 00:23 BP 113/78 06/26/17 00:23 Pulse Ox 94 L 06/26/17 00:23 Intake & Output 06/25/17 06/26/17 06/26/17 18:59 06:59 18:59 Intake Total 540 Balance 540 Intake: Oral 540 Other: Voiding Method Toilet Urinal # Voids 3 2 # Bowel Movements 0 # [place] 0 - Exam This is a pleasant 66-year-old male in no acute distress. He is alert and oriented 3. Exam of the left hip reveals that his dressing is clean, dry and intact. He has no erythema or ecchymosis. He has full foot and ankle motion without difficulty or pain. Neurovascular status to the lower extremity is intact. - Labs CBC & Chem 7: 06/25/17 07:13 Assessment and Plan (1) Primary osteoarthritis of left hip Current Visit: Yes Status: Acute Code(s): M16.12 - UNILATERAL PRIMARY OSTEOARTHRITIS, LEFT HIP SNOMED Code(s): 224704198 (2) Status post total replacement of left hip Current Visit: Yes Status: Acute Code(s): Z96.642 - PRESENCE OF LEFT ARTIFICIAL HIP JOINT SNOMED Code(s): 650695124695 Plan: The clinical findings are discussed the patient. He may be discharged to rehab when bed available and cleared medically. Most likely discharge will be Friday.
[2017-06-26] MEDS: MELOXICAM 7.5 MG TAB PO SCH (09:22)
[2017-06-26] MEDS: ASPIRIN 325 MG TAB PO SCH ×2 (09:53→22:05)
[2017-06-26] MEDS: hydrOXYzine PAMOATE 25 MG CAP PO PRN (21:02)
[2017-06-26] MEDS: SENNOSIDES-DOCUSATE SODIUM 1 EACH TAB PO SCH (21:02)
--- NOTE | 2017-06-26 22:20 | PN ---
PROGRESS NOTE DATE OF SERVICE: 06/26/17 INTERVAL HISTORY: This 60-year-old gentleman who was admitted after left total hip joint arthroplasty improved significantly. No chest pain. No palpitations. No fever. EXAM: Alert and oriented x3. Pulse 90. Blood pressure 125/70, respiration 16, temperature 98.4, pulse ox 93% on room air. HEENT: Conjunctivae normal. Neck is no jugular venous distention. Cardiovascular System: S1, S2 muffled. Respirations: Breath sounds diminished in the bases. A few scattered rhonchi and crackles. Abdomen is soft, nontender. Legs are no edema. No swelling. Nervous system: No focal deficits. LABS: WBC 11.9, hemoglobin 12. ASSESSMENT: 1. Status post left total hip joint arthroplasty. 2. Bradycardia, possibly sinus, improved. 3. History of degenerative joint disease. 4. Gait dysfunction. 5. History of gout. 6. History of back pain. RECOMMENDATIONS AND DISCUSSION: Recommend to continue current medications, symptomatic treatment, management and closely follow with Orthopedic surgery. Guarded prognosis. Further recommendations to follow. MMODL / IJN: [id number] /
[2017-06-27] MEDS: HYDROcodone/APAP 5-325MG 1 EACH TAB PO PRN ×2 (05:26→10:24)
[2017-06-27 07:52] LABS: Basophils # (A) 0.1 k/uL (0-0.2); Basophils % (A) 1 %; Eosinophils # (A) 0.2 k/uL (0-0.7); Eosinophils % (A) 2 %; HCT 35.3 % (39.0-53.0); HGB 11.9 gm/dL (13.0-17.5); Lymphocytes # (A) 3.2 k/uL (1.0-4.8); Lymphocytes % (A) 30 %; MCH 28.1 pg (25.0-35.0); MCHC 33.8 g/dL (31.0-37.0); MCV 83.1 fL (80.0-100.0); Mean Platelet Volume 7.3; Monocytes # (A) 0.7 k/uL (0-1.0); Monocytes % (A) 6 %; Neutrophils # (A) 6.4 k/uL (1.3-7.7); Neutrophils % (A) 59 %; Platelet Count 232 k/uL (150-450); RBC 4.25 m/uL (4.30-5.90); RDW 12.5 % (11.5-15.5); WBC 10.7 k/uL (3.8-10.6)
--- NOTE | 2017-06-27 08:24 | P.DS ---
Providers Date of admission: 06/24/17 06:50 Expected date of discharge: 06/27/17 Attending physician: Gustavo Mcmillan Consults: 06/24/17 09:01 Consult Physician Routine Consulting Provider: Gail Caicedo Consult Reason/Comments: medical management Do you want consulting provider notified?: Yes 06/24/17 12:26 Consult Physician Routine Consulting Provider: Ruchi Parry Consult Reason/Comments: Medical Management Do you want consulting provider notified?: Yes Primary care physician: Marifer Reynolds - Discharge Diagnosis(es) (1) Primary osteoarthritis of left hip Current Visit: Yes Status: Acute (2) Status post total replacement of left hip Current Visit: Yes Status: Acute Hospital Course: This is a 66-year-old male with known history of degenerative arthritis of the left hip. The patient presents for evaluation. After discussion and consideration patient elects to proceed with total hip arthroplasty. The patient is seen preoperatively by Dr. Caicedo and cleared for surgery. Patient is admitted to [facility] on 06/24/2017 for total hip arthroplasty. The procedures performed without complication or sequelae. The patient is doing well postoperatively. Labs and vital signs are stable on day of discharge. On day of discharge patient's hip incision is healing well. There is minimal erythema. There is no drainage noted at this time. There is minimal soft tissue swelling to the hip and thigh. Patient has full foot and ankle motion without difficulty or pain. Neurovascular status to the left lower extremity is intact. Patient is discharged to home in good condition. Please see med rec for accurate list of home medications. Patient Condition at Discharge: Good Plan - Discharge Summary Discharge Rx Participant: No New Discharge Prescriptions: New Aspirin 325 mg PO BID #60 tab HYDROcodone/APAP 5-325MG [[place] 5-325] 1 - 2 tab PO Q4-6H PRN #90 tab PRN Reason: Pain Sennosides [Senokot] 1 tab PO BID #60 tablet No Action Allopurinol [Zyloprim] 100 mg PO DAILY [place]-3 Fatty Acids/Fish Oil [Fish Oil 1,000 mg Softgel] 1,000 mg PO DAILY Indomethacin [Indocin] 25 mg PO DAILY PRN PRN Reason: Pain Ciprofloxacin HCl [Cipro] 250 mg PO BID Discharge Medication List Allopurinol [Zyloprim] 100 mg PO DAILY 05/13/17 [History] Indomethacin [Indocin] 25 mg PO DAILY PRN 05/13/17 [History] [place]-3 Fatty Acids/Fish Oil [Fish Oil 1,000 mg Softgel] 1,000 mg PO DAILY 05/13 [History] Aspirin 325 mg PO BID #60 tab 06/24/17 [Rx] Ciprofloxacin HCl [Cipro] 250 mg PO BID 06/24/17 [History] HYDROcodone/APAP 5-325MG [[place] 5-325] 1 - 2 tab PO Q4-6H PRN #90 tab 06/24/17 [ Rx] Sennosides [Senokot] 1 tab PO BID #60 tablet 06/24/17 [Rx] Follow up Appointment(s)/Referral(s): Gail Ciacedo MD [Primary Care Provider] - 07/02/17 9:30 am Gustavo Mcmillan DO [Doctor of Osteopathic Medicine] - 07/09/17 9:30 am Activity/Diet/Wound Care/Special Instructions: Weightbearing as tolerated with walker Leave dressing intact. Dressing may be removed by home care nurse in 10 days. May shower with dressing on. Follow-up with [facility] in 2 weeks, please call with any questions or concerns [phone] Discharge Disposition: HOME WITH HOME HEALTH SERVICES
[2017-06-27 08:30] VITALS: BP 127/77; PULSE 96; RESP 16; TEMP 98.1
[2017-06-27] MEDS: MELOXICAM 7.5 MG TAB PO SCH (08:32)
[2017-06-27] MEDS: ASPIRIN 325 MG TAB PO SCH (08:33)
[2017-06-27] MEDS: hydrOXYzine PAMOATE 25 MG CAP PO PRN (08:37)
--- NOTE | 2017-06-28 04:39 | PN ---
PROGRESS NOTE DATE OF SERVICE: 06/27/2017 This 66-year-old gentleman admitted after left total hip arthroplasty is being monitored closely. ECF rehab is recommended. No chest pain. No palpitations. No fever. EXAM: Alert and oriented times three. Pulse 96, blood pressure 127/70, respirations 16, temperature 98.2, pulse ox 98% on room air. HEENT: Conjunctivae normal. Neck: No jugular venous distention. Cardiovascular: S1, S2 muffled. Respiratory: Breath sounds diminished in the bases. No rhonchi. No crackles. Abdomen soft. Legs status post surgery. Central nervous system: No focal deficits. LABS: WBC 10.7, hemoglobin 11.9. ASSESSMENT: 1. Status post left total hip joint arthroplasty. 2. Bradycardia, possibly sinus improved. 3. History of degenerative joint disease. 4. Gait dysfunction, gout. 5. History of back pain. RECOMMENDATIONS AND DISCUSSION: Recommend to continue current medications, management and symptomatic treatment. Closely follow. Guarded prognosis. Further recommendations to follow. MMODL / IJN: [id number] /
== END 2017-06-27 14:08 | disposition home health service (06) | DRG 470 ==
LOC: 2ORMAIN 06:50 → 3SUR 11:08
PROVIDERS: ADMIT Orthopaedic Surgery; ATTEND Orthopaedic Surgery
PROC: 30233N0 Transfusion of Autologous Red Blood Cells into Peripheral Vein, Percutaneous Approach (ICD-10-PCS; 2017-06-24)
PROC: 0SRB06A Replacement of Left Hip Joint with Oxidized Zirconium on Polyethylene Synthetic Substitute, Uncemented, Open Approach (ICD-10-PCS; principal; 2017-06-24 09:20)
DX: M16.12 Unilateral primary osteoarthritis, left hip (principal); M25.752 Osteophyte, left hip; M10.9 Gout, unspecified; M54.9 Dorsalgia, unspecified; R00.1 Bradycardia, unspecified; Z79.82 Long term (current) use of aspirin; Z79.891 Long term (current) use of opiate analgesic; Z90.89 Acquired absence of other organs; Z79.899 Other long term (current) drug therapy
CPT/HCPCS: 36415; 73501; 85025; 86850; 86891; 86900; 86901; 88300

== ENCOUNTER → 2017-07-09 | Outpatient (CLI) | payer MEDICARE, OTHER ==
[2017-07-09 14:17] VITALS: BP 123/71; PULSE 90; RESP 18
--- NOTE | 2017-07-09 14:34 | P.PAINPG ---
Subjective Progress Note Date: 07/09/17 Principal diagnosis: Left lumbar radiculopathy, herniated nuclear pulposus This is a very pleasant 66-year-old gentleman who presents today for follow-up after undergoing 2 previous lumbar epidural steroid injections. He reports that these were extremely helpful in reducing his back pain and leg pain. He also recently underwent a left hip surgery which she says has helped him. He continues to walk with a walker now. He is requesting to have a third lumbar epidural steroid injection as he felt these were still helpful for him. Objective - Vital Signs Vital signs: Vital Signs Temp Pulse 90 07/09/17 14:12 Resp 18 07/09/17 14:12 BP 123/71 07/09/17 14:12 Pulse Ox 96 07/09/17 14:12 Intake & Output 07/08/17 07/09/17 07/09/17 18:59 06:59 18:59 Weight 86.183 kg - Exam Gen.: This is a very pleasant 66 old gentleman who is not sedated. 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 He walks with a walker. Focused examination: His scar reveals that his hip surgery is healing well. He does restore focal motor deficits in the lower extremity. Straight leg raise is positive on the left side. He has no focal sensory deficits in lower extremity. Assessment and Plan (1) Lumbar disc herniation Narrative/Plan: We will schedule the patient for repeat of lumbar epidural steroid injection. It is been 2-3 weeks since his hip surgery. We will wait another 3-4 weeks until his injection is performed. Current Visit: No Status: Chronic Code(s): M51.26 - OTHER INTERVERTEBRAL DISC DISPLACEMENT, LUMBAR REGION SNOMED Code(s): 204694094 (2) Lumbar facet arthropathy Current Visit: No Status: Chronic Code(s): M46.96 - UNSPECIFIED INFLAMMATORY SPONDYLOPATHY, LUMBAR REGION SNOMED Code(s): 787918017 (3) Lumbar radiculopathy Current Visit: No Status: Chronic Code(s): M54.16 - RADICULOPATHY, LUMBAR REGION SNOMED Code(s): 213313716 PQRS Measure Charge Sheet Measure #130: Documentation of Current Meds in Medical Chart: Patient not eligible for medications to be documented Measure #226: Tobacco Use: Screen & Cessation Intervention: Pt not a tobacco user Measure #111: Pneumonia Vaccination: Pneumococcal vaccine NOT administered or previously given Measure #47: Advance Care Plan: Advance care planning discussed & documented, pt chose/unable to give Measure #412: Opioid Treatment Agreement: No documentation of signed opioid treatment agreement Measure #408: Opioid Therapy Follow-up Evaluation: Patient had NO f/u eval minimum every 3 months during opioid therapy Measure #317: Preventitive Care & Scrn High Bld Press & F/U: Normal blood pressure, f/u not required Measure #128: Body Mass Index (BMI) Screening & Follow-up: BMI documented within normal parameters Measure #131: Pain Assessment & Follow-up: Pain positive & plan documented Measure #431: Unhealthy Alcohol Use Preventative Care & Scrn: Patient not identified as an unhealthy alcohol user PQRS Narrative: Smoking Status Never smoker Do You Want the Pneumonia No Vaccine AT THIS TIME? Blood Pressure 123/71 Pain Intensity [Left Lower 2 Back] Scale Used Numeric (1 - 10) Hx Alcohol Use (MH) No Controlled Substance Measures - Controlled Substance Measures Is patient prescribed a controlled substance at discharge?: No If prescribed controlled substance>3 days was MAPS reviewed?: No When asked, does pt state using other controlled substances?: No
== END | disposition home or self-care (01) ==
LOC: PNWHC3 13:20
PROVIDERS: ATTEND Pain Medicine Pain Medicine
DX: M51.16 Intervertebral disc disorders with radiculopathy, lumbar region (principal); M46.86 Other specified inflammatory spondylopathies, lumbar region
CPT/HCPCS: 99211

== ENCOUNTER 2017-08-06 08:15 | Day surgery (SDC) | payer MEDICARE, OTHER ==
[2017-08-04 17:08] VITALS: BMI 28.8
[~2017-08-06 08:15] MED LIST changes: -ACETAMINOPHEN TAB 500 MG TAB PO ONE; +LACTATED RINGERS 1,000 ML IV SCH; -MIDAZOLAM 2 MG/2 ML VIAL IV PRN; -ONDANSETRON ODT 4 MG TAB PO ONE; -ROPIVACAINE 246.25 MG, EPINEPHrine 0.5 MG, KETOROLAC 30 MG, cloNIDine HCL/PF 80 MCG, WA... MISCELLANE ONE; -TRANEXAMIC ACID 1,000 MG in SODIUM CHLORIDE 0.9% 50 ML IVPB ONE; -ceFAZolin IN SWFI 2 GM/20 ML SYRINGE IVP ONE; -fentaNYL (PF) 50 MCG/ML 2 ML AMP IV PRN
[2017-08-06] MEDS ORDERED: LACTATED RINGERS 1,000 ML IV ONE (08:25)
[2017-08-06] MEDS ORDERED: LIDOCAINE 1% 20 ML VIAL (10MG/ML) FOR IV START INTRADERMA ONE (08:26)
[2017-08-06 08:31] VITALS: TEMP 98
--- NOTE | 2017-08-06 09:20 | P.PCN ---
Date of Procedure: 08/06/17 Surgeon: Reyes Reyna Description of Procedure: PREOPERATIVE DIAGNOSIS: MR spinal stenosis, left lumbar radicular pain POSTOPERATIVE DIAGNOSIS: Same PROCEDURE Lumbar epidural steroid injection under fluoroscopic guidance at the left L4 5 level. ANESTHESIA: Local with 1% lidocaine 3 ml and IV sedation with Versed 2 mg EBL: Minimal PROCEDURE INDICATION: As a very pleasant 66 showed gentleman who presents today for treatment of his left lumbar radicular pain. He has had injections for this in the past reports a very helpful reduce his pain by greater than 50%. He did have a left hip replacement across a 1 month ago. This appears to be healing well without any difficulty.. PROCEDURE DESCRIPTION / TECHNIQUE: The patient was seen and identified in the preoperative area. Risks, benefits , complications including but not limited to infections ,bleeding ,allergic reaction to the medications ,nerve damage and not complete pain relief , and alternatives were discussed with the patient. The patient agreed to proceed with the procedure and signed the consent. IV was started, and vital signs were stable. Patient was taken to the OR and time out was completed. The patient was placed in the prone position on procedure table and a pillow was placed under the abdomen to reduce lumbar lordosis. The lumbosacral area was prepped and draped in the usual sterile fashion.ere closely monitored during the procedure. Conscious sedation was used during the procedure to decrease patients anxiety. Vital signs was monitered during the entire procedure. Using anterior-posterior fluoroscopy, the L5-S1 interlaminar space was identified and the skin over this site was marked and then infiltrated with 1% lidocaine subcutaneously. Subsequently, a 20-gauge Tuohy epidural needle was inserted and advanced toward the epidural space using the Loss of resistance technique and guided by AP and lateral fluoroscopy. The correct needle position in the epidural space was verified with the injection of contrast and observing an excellent epidurogram with the epidural spread of the dye, after negative aspiration for blood and CSF and in the absence of paresthesias. Again after negative aspiration, a 6 ml mixture containing 80 milligrams of Depo- Medrol was injected and a washout of epidurogram was seen. Needle was withdrawn intact, skin was cleansed, and bandages were applied. COMPLICATIONS: None DISPOSITION / PLANS: The patient was placed in a supine position and transferred to the recovery area in a stable condition for observation. There was no evidence of lower extremity motor or sensory deficit after the procedure. Patient was discharged from the recovery room after meeting discharge criteria. Home discharge instructions were given to the patient by the staff. The patient was reexamined prior to discharge. The patient will schedule a follow up in the clinic in 2-4 weeks.
[2017-08-06] MEDS ORDERED: IV FLUID CONTINUATION 700 ML IV ONE (09:28)
[2017-08-06 10:05] VITALS: BP 146/85; PULSE 75; RESP 16
--- NOTE | 2017-08-06 11:44 | FL ---
Fluoroscopy INDICATION: Pain FINDINGS: Fluoroscopy time: 1 seconds. Images obtained: 1. IMPRESSIONS: 1. Documentation of fluoroscopy.
== END 2017-08-06 10:42 | disposition home or self-care (01) ==
LOC: ORPAIN 08:15
PROVIDERS: ATTEND Pain Medicine Pain Medicine
DX: M54.16 Radiculopathy, lumbar region (principal); Z96.642 Presence of left artificial hip joint; M48.00 Spinal stenosis, site unspecified
CPT/HCPCS: 62323; J2250; J1030

== ENCOUNTER 2017-09-23 09:14 | Day surgery (SDC) | payer MEDICARE, OTHER ==
[2017-09-22 11:46] VITALS: BMI 32.3
[2017-09-23 09:42] VITALS: TEMP 97.9
[2017-09-23] MEDS ORDERED: LIDOCAINE 1% 20 ML VIAL (10MG/ML) FOR IV START INTRADERMA ONE (09:54)
[2017-09-23] MEDS ORDERED: PROPOFOL 10 MG/ML 20 ML VIAL IV ONE (10:04)
--- NOTE | 2017-09-23 10:07 | P.GSHP ---
History of Present Illness H&P Date: 09/23/17 Chief Complaint: GI bleed, hemorrhoids This is a 66-year-old male referred from Dr. Caicedo. Patient presents today for colonoscopy. He's had issues with hemorrhoids pain and bleeding. Past Medical History Past Medical History: Osteoarthritis (OA) Additional Past Medical History / Comment(s): gout History of Any Multi-Drug Resistant Organisms: None Reported Past Surgical History: Appendectomy, Joint Replacement Additional Past Surgical History / Comment(s): PAIN CLINIC PROCEDURES/lt hip replacement Past Anesthesia/Blood Transfusion Reactions: No Reported Reaction Smoking Status: Never smoker - Past Family History Mother Family Medical History: No Reported History Father Family Medical History: No Reported History Medications and Allergies Home Medications Medication Instructions Recorded Confirmed Type Allopurinol [Zyloprim] 100 mg PO DAILY 08/05/17 09/23/17 History Fish Oil/Dha/Epa [Fish Oil 1,200 1 each PO DAILY 09/22/17 09/23/17 History mg Fish Oil] Allergies Allergy/AdvReac Type Severity Reaction Status Date / Time No Known Allergies Allergy Verified 09/23/17 09:33 Surgical - Exam Vital Signs Temp Pulse BP Pulse Ox 97.9 F 76 152/87 98 09/23/17 09:41 09/23/17 09:41 09/23/17 09:41 09/23/17 09:41 - General well developed, no distress - Eyes PERRL - ENT normal pinna - Neck no masses - Respiratory normal expansion - Cardiovascular Rhythm: regular - Abdomen Abdomen: soft, non tender Assessment and Plan Assessment: History of hemorrhoids. Anal pain, bleeding We'll perform colonoscopy.
--- NOTE | 2017-09-23 10:22 | P.OP ---
Date of Procedure: 09/23/17 Preoperative Diagnosis: Hemorrhoids Rectal bleeding Postoperative Diagnosis: Diverticulosis Internal hemorrhoids Procedure(s) Performed: Colonoscopy Anesthesia: MAC Surgeon: Geo Lomas Pathology: none sent Condition: stable Disposition: PACU Description of Procedure: The patient's placed on the endoscopy table in the lateral position. He received IV sedation. Digital rectal exam was performed which revealed internal hemorrhoids. The flexible colonoscope was then placed patient anus passed throughout the entire colon. The ileocecal valve sutures. The cecum, ascending and transverse colon appeared normal. The scope was then brought back the descending and sigmoid colon there was scattered diverticuli. Scope was then brought back the rectum and this appeared normal. There is no evidence of GI bleed. Scope was then brought back through the anus and internal hemorrhoids are noted. Scope was withdrawn from the patient.
[2017-09-23 10:23] VITALS: RESP 16
[2017-09-23 10:43] VITALS: BP 138/84; PULSE 60
== END 2017-09-23 10:54 | disposition home or self-care (01) ==
LOC: ORWHC2ENDO 09:14
PROVIDERS: ATTEND Surgery
DX: K62.5 Hemorrhage of anus and rectum (principal); K64.8 Other hemorrhoids; K57.30 Diverticulosis of large intestine without perforation or abscess without bleeding; M19.90 Unspecified osteoarthritis, unspecified site; M10.9 Gout, unspecified; Z79.899 Other long term (current) drug therapy; Z87.19 Personal history of other diseases of the digestive system; Z96.642 Presence of left artificial hip joint
CPT/HCPCS: 45378; J2704

== ENCOUNTER 2017-10-21 09:43 | Day surgery (SDC) | payer MEDICARE, OTHER ==
[2017-10-15 09:16] VITALS: BMI 30.4
[~2017-10-21 09:43] MED LIST changes: +HEPARIN SODIUM,PORCINE 5,000 UNIT/ML 1 ML VIAL SQ ONE; -LACTATED RINGERS 1,000 ML IV SCH; +Pre Op ABX Message 1 EACH MISC MISCELLANE ONE
[2017-10-21] MEDS ORDERED: NA PHOS,M-B/NA PHOS,DI-BA 133 ML ENEMA RECTAL ONE (10:00)
[2017-10-21 10:07] VITALS: TEMP 98.2
[2017-10-21] MEDS ORDERED: LIDOCAINE 1% 20 ML VIAL (10MG/ML) FOR IV START INTRADERMA ONE (10:28)
[2017-10-21] MEDS ORDERED: LACTATED RINGERS 1,000 ML IV ONE (10:28)
--- NOTE | 2017-10-21 11:07 | P.GSHP ---
History of Present Illness H&P Date: 10/21/17 Chief Complaint: Hemorrhoids This is a 66-year-old male. He's had issues with hemorrhoids. He presents today for hemorrhoidectomy. Patient recent endoscopies have an internal and external hemorrhoids. Past Medical History Past Medical History: Osteoarthritis (OA) Additional Past Medical History / Comment(s): gout History of Any Multi-Drug Resistant Organisms: None Reported Past Surgical History: Appendectomy, Joint Replacement Additional Past Surgical History / Comment(s): PAIN CLINIC PROCEDURES/lt hip replacement Past Anesthesia/Blood Transfusion Reactions: No Reported Reaction Smoking Status: Never smoker - Past Family History Mother Family Medical History: No Reported History Father Family Medical History: No Reported History Medications and Allergies Home Medications Medication Instructions Recorded Confirmed Type Allopurinol [Zyloprim] 100 mg PO DAILY 08/05/17 10/15/17 History Fish Oil/Dha/Epa [Fish Oil 1,200 1 each PO DAILY 09/22/17 10/15/17 History mg Fish Oil] Allergies Allergy/AdvReac Type Severity Reaction Status Date / Time No Known Allergies Allergy Verified 10/21/17 10:05 Surgical - Exam Vital Signs Temp Pulse Resp BP Pulse Ox 98.2 F 72 16 177/83 98 10/21/17 10:04 10/21/17 10:04 10/21/17 10:04 10/21/17 10:04 10/21/17 10:04 - General well developed, no distress - Eyes PERRL - ENT normal pinna - Neck no masses - Respiratory normal expansion - Cardiovascular Rhythm: regular - Abdomen Abdomen: soft, non tender - Rectum Internal and external hemorrhoids Assessment and Plan Assessment: Internal and external hemorrhoids We'll perform hemorrhoidectomy.
[2017-10-21] MEDS ORDERED: MIDAZOLAM 2 MG/2 ML VIAL ONE (11:30)
[2017-10-21] MEDS ORDERED: fentaNYL (PF) 50 MCG/ML 2 ML AMP ONE (11:30)
[2017-10-21] MEDS ORDERED: PROPOFOL 10 MG/ML 20 ML VIAL IV ONE (11:30)
[2017-10-21] MEDS ORDERED: BUPIVACAIN-EPI 0.5%-1:200,000 30 ML VIAL SQ ONE (11:54)
[2017-10-21] MEDS ORDERED: SODIUM CHLORIDE 0.9% 50 ML with ceFAZolin 2,000 MG IV ONE ×2 (11:54)
[2017-10-21] MEDS ORDERED: GELATIN SPONGE,ABSORB (LARGE) 1 EACH SPONGE TOPICAL ONE (12:02)
--- NOTE | 2017-10-21 12:17 | P.OP ---
Date of Procedure: 10/21/17 Preoperative Diagnosis: Internal and external hemorrhoids Postoperative Diagnosis: Internal and external hemorrhoids Procedure(s) Performed: Internal and external hemorrhoidectomy Anesthesia: MARSHALL Surgeon: Geo Lomas Estimated Blood Loss (ml): 5 Pathology: other (Internal and external hemorrhoids) Condition: stable Disposition: PACU Description of Procedure: The patient's placed on the operating table in the prone jackknife position. He received IV sedation. His perianal area was anesthetized 1% local Xylocaine. Using a bivalved anal retractor the hemorrhoids are exposed. The left lateral column was grasped with a pair of Allis clamps and then using the Harmonic scissors the rectus performed. Next the right anterior and right posterior hemorrhoidal columns were grasped and dissected free with the Harmonic scissors. There is no bleeding seen. The anus was then packed with Gelfoam. Patient top she will well and was sent to recovery room stable condition.
[2017-10-21 13:17] VITALS: RESP 16
[2017-10-21 13:42] VITALS: BP 124/77; PULSE 59
== END 2017-10-21 14:10 | disposition home or self-care (01) ==
LOC: OR 09:43
PROVIDERS: ATTEND Surgery
DX: K64.8 Other hemorrhoids (principal); K64.4 Residual hemorrhoidal skin tags; M19.90 Unspecified osteoarthritis, unspecified site; M10.9 Gout, unspecified; Z96.642 Presence of left artificial hip joint; Z79.899 Other long term (current) drug therapy
CPT/HCPCS: 88304; 46260; J2250; J1644; J3010; J0690; J2704

== ENCOUNTER → 2018-06-03 | Outpatient (CLI) | payer MEDICARE, OTHER ==
--- NOTE | 2018-06-03 14:36 | XR ---
EXAMINATION TYPE: XR shoulder limited RT DATE OF EXAM: 06/03/2018 COMPARISON: NONE HISTORY: Pain TECHNIQUE: Shoulder examined in 2 views FINDINGS: The humeral head articulates with the glenoid. The acromio-clavicular junction is normal. No acute fractures or dislocations are evident. A follow up study can be performed 7-10 days from acute trauma for continued pain. IMPRESSION: 1. Normal 2 view right Shoulder
--- NOTE | 2018-06-03 14:37 | XR ---
EXAMINATION TYPE: XR knee limited RT DATE OF EXAM: 06/03/2018 COMPARISON: None HISTORY: Pain TECHNIQUE: 2 view right FINDINGS: Joint spaces are preserved. No joint effusion is evident. No acute fractures are evident. IMPRESSION: 1. Normal 2 view right knee
== END | disposition home or self-care (01) ==
LOC: RADXRMAIN 10:44
PROVIDERS: ATTEND Internal Medicine
DX: M25.561 Pain in right knee (principal); M25.511 Pain in right shoulder